=== PATIENT | male | born 1965 | race Caucasian/White ===

== ENCOUNTER 2017-08-26 13:53 | Emergency (ER) | payer BC ==
[~2017-08-26] VITALS: Ht 167.6 cm; Wt 121.6 kg
[2017-08-26 13:59] VITALS: Ht 167.6 cm; Wt 121.6 kg
[2017-08-26 14:55] VITALS: BP 103/74
== END 2017-08-26 14:55 | disposition home or self-care (01) ==
LOC: ED 13:53
DX: S93.402A Sprain of unspecified ligament of left ankle, initial encounter (principal); Z90.89 Acquired absence of other organs; Y93.66 Activity, soccer; Y92.89 Other specified places as the place of occurrence of the external cause; Y99.8 Other external cause status
CPT/HCPCS: J1885